=== PATIENT | female | born 1960 | race Caucasian/White ===

== ENCOUNTER → 2018-11-28 12:31 | Outpatient (CLI) | payer OTHER, SELFPAY ==
--- NOTE | 2018-11-28 12:34 | DI.MRI.S_ITS ---
PROCEDURE: MR HEAD/BRAIN WO CON INDICATIONS: headaches increased frequency/change symptoms TECHNIQUE: Noncontrast axial T1 spin echo, axial T2 fast spin echo, sagittal and axial FLAIR, coronal T2 fast spin echo, axial gradient echo, axial diffusion and ADC through the brain. COMPARISON: None. FINDINGS: Image quality: Excellent. CSF Spaces: Basal cisterns are patent. No extra-axial fluid collections. Ventricles are normal in size and shape. Brain: No intracranial masses or hemorrhage. Naranjo/white matter interface is normal. Brainstem appears normal. Diffusion-weighted images demonstrate no acute ischemic insult. No chronic ischemic insults. Normal intravascular flow voids are present. Skull and face: Calvarium has normal marrow signal. Orbits appear normal. Sinuses: Sinuses and mastoids are clear. IMPRESSION: Unremarkable intracranial study, without an imaging explanation found for the patient's presenting history of headache. Dictated by: Milton Delcid M.D. on 11/28/2018 at 12:23 Approved by: Milton Delcid M.D. on 11/28/2018 at 12:24
== END ==
PROVIDERS: Visit Provider Family Medicine
DX: G43.909 Migraine, unspecified, not intractable, without status migrainosus (principal)
CPT/HCPCS: 70551

== ENCOUNTER → 2019-04-07 12:30 | Oncology outpatient (ONC) | payer OTHER, SELFPAY ==
[2019-04-02 14:07] VITALS: BP 105/58; PULSE 74; RESP 16; TEMP 36.8; O2SAT 97
[2019-04-02] MEDS: METOCLOPRAMIDE 10 MG in SODIUM CHLORIDE 0.9% 50 ML 208 ML IV (14:18)
[2019-04-02] MEDS: VALPROIC ACID IV (14:41)
[2019-04-02] MEDS: DIHYDROERGOTAMINE IV (14:41)
[2019-04-02] MEDS: [UNRECOGNIZED DRUG - OTHER] IV (14:41)
[2019-04-02] MEDS: MAGNESIUM SULFATE IV (14:41)
[2019-04-06 15:09] VITALS: BP 119/60; PULSE 72; RESP 16; TEMP 36.6; O2SAT 99
[2019-04-06] MEDS: METOCLOPRAMIDE 10 MG in SODIUM CHLORIDE 0.9% 50 ML 208 ML IV (15:17)
[2019-04-06] MEDS: DIHYDROERGOTAMINE IV (15:51)
[2019-04-06] MEDS: SODIUM CHLORIDE 0.9% IV (15:51)
[2019-04-06] MEDS: VALPROIC ACID IV (15:51)
[2019-04-07] MEDS: METOCLOPRAMIDE 10 MG in SODIUM CHLORIDE 0.9% 50 ML 208 ML IV (13:22)
[2019-04-07 13:52] VITALS: BP 101/55; PULSE 75; RESP 18; TEMP 37
[2019-04-07] MEDS: DIHYDROERGOTAMINE IV (14:21)
[2019-04-07] MEDS: VALPROIC ACID IV (14:21)
[2019-04-07] MEDS: SODIUM CHLORIDE 0.9% IV (14:21)
--- NOTE | 2019-04-07 17:33 | PC.NURSE ---
Pt seen in clinic for [facility] infusion. Denies chest pain and SOB. RR equal and unlabored, pt able to sleep comfortably during most of the infusion. PT had 1 episode of emesis, approx 50 cc. PT reports feeling better post emesis. Per pt, vomiting happens sometimes with migraines. Declined crackers or gingerale, cool washcloth placed to forehead. Tolerated rest of infusion well.
== END ==
PROVIDERS: PCP Family Medicine; Visit Provider Family Medicine
DX: G43.711 Chronic migraine without aura, intractable, with status migrainosus (principal); E86.9 Volume depletion, unspecified; R11.2 Nausea with vomiting, unspecified
CPT/HCPCS: 96365; 96366; 96375; J1110; J2765; J3475